=== PATIENT | female | born 1990 | race Caucasian/White ===

== ENCOUNTER → 2024-12-18 | Outpatient (REF) | payer OTHER ==
[2024-12-18 17:59] LABS: BASO # 0.1 10^3/uL (0.0-0.2); BASO % 0.9 % (0.0-1.0); EOS # 0.1 10^3/uL (0.0-0.5); EOS % 0.9 % (0.0-3.0); LYMPH # 2.0 10^3/uL (1.5-5.0); LYMPH % 35.0 % (24.0-44.0); MONO # 0.4 10^3/uL (0.0-0.8); MONO % 7.7 % (2.0-8.0); NEUTROPHILS # 3.2 10^3/uL (1.5-8.5); NEUTROPHILS % 55.3 % (36.0-66.0); PLATELET COUNT, AUTOMATED 248 10^3/uL (150-450)
[2024-12-18 18:11] LABS: ALT/SGPT 18 U/L (7.0-40); AST/SGOT 12 U/L (<34); CALCIUM LEVEL 9.1 MG/DL (8.5-10.1); CARBON DIOXIDE LEVEL 29 MMOL/L (20-31); CHLORIDE LEVEL 106 MMOL/L (98-107); CHOLESTEROL LEVEL 199 MG/DL (<200); CHOLESTEROL RISK RATIO 3.09 (<5); CREATININE FOR GFR 0.64 MG/DL (0.55-1.30); GLOMERULAR FILTRATION RATE > 90.0 (>60); LDL CHOLESTEROL 120.0 MG/DL (<100); NON-HDL-C 134.8 MG/DL; POTASSIUM SERUM 4.5 MMOL/L (3.5-5.1); SODIUM LEVEL 142 MMOL/L (136-145); TRIGLYCERIDES LEVEL 74 MG/DL (<150)
[2024-12-18 18:53] LABS: ESTIMATED AVERAGE GLUCOSE 103.0 MG/DL (60-110)
[2024-12-18 19:10] LABS: APPEARANCE, URINE CLEAR (CLEAR); BACTERIA, URINE AUTO NEGATIVE (NEGATIVE); BILIRUBIN, URINE AUTO NEGATIVE (NEGATIVE); BLOOD, URINE BLOOD NEGATIVE (NEGATIVE); GLUCOSE, URINE (UA) AUTO NEGATIVE (NEGATIVE); KETONE, URINE AUTO NEGATIVE (NEGATIVE); LEUKOCYTE ESTERASE, URINE AUTO NEGATIVE (NEGATIVE); NITRITE, URINE AUTO NEGATIVE (NEGATIVE); PROTEIN, URINE AUTO NEGATIVE (NEGATIVE); RBC, URINE AUTO 11 /HPF (0-3); SPECIFIC GRAVITY URINE AUTO 1.025 (1.002-1.035); SQUAMOUS EPITHELIAL CELL UR AU 0 /HPF (0-6); UROBILINOGEN, URINE AUTO 0.2 mg/dL (0.0-2.0); WBC, URINE AUTO 0 /HPF (0-3)
== END ==
LOC: M SFHCLERA 09:22
PROVIDERS: ATTEND Internal Medicine
DX: Z00.00 Encounter for general adult medical examination without abnormal findings (principal)